=== PATIENT | female | born 1975 | race African-American/Black ===

== ENCOUNTER 2020-01-23 10:45 | Emergency (ER) | payer OTHER, SELFPAY ==
--- NOTE | 2020-01-23 10:56 | ED.CHESTPAIN ---
HPI - Chest Pain General Chief Complaint: Unspecified Stated Complaint: pain aches chest pain Time Seen by Provider: 01/23/20 10:56 Source: patient and RN notes reviewed History of Present Illness HPI narrative: Patient is a 44-year-old female presents the urgent care with complaints of body aches, chest pain, shortness of breath x1 week. Patient states she has been using an albuterol inhaler that she had at home as well as her son nebulizer treatments. Patient denies any fever, nausea, vomiting. States that the chest pain wraps around through her back . Patient states that she does have heart conditions but is uncertain on full cardiac history. Patient does take blood pressure medication and states that she has had a cardiac cath but is unaware if she has a stent placed. Patient states that the pain increases with exertion. No other acute complaints. Patient is visibly anxious. Patient is stable. Patient aware of the plan of care. Related Data Home Medications Medication Instructions Recorded Confirmed albuterol sulfate 90 inh INHALATION DIRECTED 01/23/20 01/23/20 lisinopril-hydrochlorothiazide 1 tablet PO DAILY 01/23/20 01/23/20 metoprolol tartrate 50 mg PO DAILY 01/23/20 01/23/20 Allergies Allergy/AdvReac Type Severity Reaction Status Date / Time Sulfa (Sulfonamide Allergy Rash Verified 01/23/20 11:06 Antibiotics) Review of Systems Review of Systems: Narrative: CONSTITUTIONAL: Denies fever, chills, or sweats. EYES: Denies visual changes, redness, or discharge. ENT: Denies rhinorrhea, congestion, sore throat, or otalgia. CARDIOVASCULAR: Reports of chest pain RESPIRATORY: Reports of dyspnea, increased on exertion GASTROINTESTINAL: Denies abdominal pain, nausea, vomiting, or diarrhea. GENITOURINARY: Denies dysuria or hematuria. SKIN: Denies rash or itching. MUSCULOSKELETAL: Denies back pain, joint pain, or myalgia. NEUROLOGIC: Denies headache, numbness, or weakness. All other systems reviewed are negative, except as documented in HPI. PMFSH Comments At the time of my signature, I reviewed and agree with the nursing past medical, surgical, social, and family history. There is no relevant family history pertinent to the patient complaint. Exam Narrative: Exam Narrative: GENERAL: This is a well-nourished, well-developed patient, visibly anxious HEAD: normocephalic, atraumatic. EYES: PERRL. Sclera clear/white. Vision is grossly intact. EARS: External ears normal NOSE: External nose normal with no obvious nasal discharge THROAT: Mucous membranes moist NECK: Neck supple CARDIOVASCULAR: Regular rate and rhythm RESPIRATORY: Tight expiratory wheezes bibasilar SKIN: warm, intact with no suspicious lesions or rash, good texture and turgor. NEURO: awake, alert, and oriented to person, place and time. There were no obvious focal neurologic abnormalities. EXTREMITIES: No clubbing, cyanosis, or edema. Course Vital Signs Vital signs: Vital Signs Temperature 97.6 F 01/23/20 10:57 Pulse Rate 81 01/23/20 10:57 Respiratory Rate 20 01/23/20 10:57 Blood Pressure 185/115 H 01/23/20 10:57 Pulse Oximetry 98 01/23/20 10:57 Temperature 97.6 F 01/23/20 10:57 Pulse Rate 81 01/23/20 10:57 Respiratory Rate 20 01/23/20 10:57 Blood Pressure 185/115 H 01/23/20 10:57 Pulse Oximetry 98 01/23/20 10:57 Reviewed?patient is informed that they may have pre-hypertension or hypertension based on a blood pressure reading in the department. I recommend the patient call the primary care provider listed on their discharge instructions or a physician of their choice this week to arrange follow-up for further evaluation of possible pre-hypertension or hypertension. Transfer Transfered to: [facility] Transportation: Other (Private car?refusing EMS transfer) Transfer rationale: Further evaluation and treatment for chest pain and shortness of breath Accepting physician: Dr. Martinez [facility] - Chest P
[2020-01-23 10:57] VITALS: BP 185/115; PULSE 81; RESP 20; TEMP 36.4; O2SAT 98
== END 2020-01-23 11:15 | disposition short-term general hospital (02) ==
PROVIDERS: Emergency Provider Nurse Practitioner Family
DX: R06.02 Shortness of breath (principal); R07.9 Chest pain, unspecified; I10 Essential (primary) hypertension
CPT/HCPCS: 99212; G0463